=== PATIENT | male | born 1985 | race Caucasian/White ===

== ENCOUNTER → 2021-10-24 | Outpatient (CLI) | payer BC ==
--- NOTE | 2021-10-24 19:23 | Diagnostic Imaging Report ---
PROCEDURE: MRI right joint lower extremity without contrast. TECHNIQUE: Multiplanar, multisequence non contrast-enhanced MRI of the right lower extremity was accomplished. INDICATION: Right knee pain. No known trauma. EXAMINATION: Right knee MRI without contrast 10/24/2021 FINDINGS: There is T2 hyperintensity anterior to the patellar tendon most marked over the distal patellar tendon. The very tip of the distal patellar tendon is not included on sagittal imaging. Visualized aspects of the patellar tendon intact with minimal T2 hyperintensity along the distal aspect not completely imaged possibly due to small intrasubstance tear versus tendinosis. The visualized quadriceps tendon is intact. The ACL and PCL intact. There is edema surrounding the MCL suggesting a sprain. The MCL itself, however, is intact. The lateral collateral ligamentous complex is intact. Mild edema medial to the distal iliotibial band may be secondary to the adjacent joint fluid with iliotibial band syndrome not excluded. There is a horizontal oblique tear within the posterior horn of the medial meniscus extending towards the meniscal body. Tear extends down to the tibial surface. The lateral meniscus is intact. There is mild thinning of the cartilage in the medial compartment with edema in the adjacent tibia and femur likely reactive. Cartilage in the lateral joint space appears preserved. Patellofemoral cartilage is maintained. There is a moderate joint effusion. There is a tiny Bay's cyst. IMPRESSION: 1. Tear of the posterior horn and body of the medial meniscus with the lateral meniscus intact 2. MCL sprain 3. Edema adjacent to the iliotibial band which may be incidental with an iliotibial band syndrome not excluded; correlate with symptoms. 4. Soft tissue edema anterior to the distal patellar tendon and possibly within the intrasubstance of the very distal patellar tendon incompletely included. Findings most likely on the basis of tendinosis with a small intrasubstance partial tear not excluded. Dictated by: Dictated on workstation # [id number]
== END ==
LOC: RAD 17:14
PROVIDERS: ATTEND Family Medicine
DX: S83.411A Sprain of medial collateral ligament of right knee, initial encounter (principal); S83.241A Other tear of medial meniscus, current injury, right knee, initial encounter; X58.XXXA Exposure to other specified factors, initial encounter
CPT/HCPCS: 73721